=== PATIENT | male | born 1985 | race Caucasian/White ===

== ENCOUNTER 2019-06-23 09:51 | Day surgery (SDC) | payer OTHER ==
[2019-06-20 11:37] LABS: Basophils # (auto) 0 uL; Basophils % (auto) 0.3 % (0.0-2.0); Eosinophils # (auto) 0.1 uL; Eosinophils % (auto) 1.9 % (0.0-7.0); Hematocrit 45.8 % (41.0-53.0); Hemoglobin 15.4 g/dL (13.5-17.5); Lymphocytes # (auto) 1.5 uL; Mean Corpuscular Hemoglobin 29.6 pg (28.0-32.0); Mean Corpuscular Hgb Conc. 33.6 g/dL (32.0-36.0); Mean Corpuscular Volume 88.1 fL (80.0-100.0); Monocytes # (auto) 0.4 uL; Monocytes % (auto) 6.3 % (0.0-12.0); Neutrophils # (auto) 4.3 uL; Neutrophils % (auto) 67.5 % (37.0-80.0); Platelet Count (auto) 288 10^3/uL (140-450); Red Cell Distribution Width 13.3 % (11.8-14.3); White Blood Cell 6.4 10^3/uL (4.4-10.8)
[2019-06-20 11:58] LABS: INR 0.95 (0.9-1.15); Partial Thromboplastin Time 28.4 sec (23.64-32.05)
[~2019-06-23] VITALS: Ht 175.3 cm; Wt 83.9 kg
[~2019-06-23 09:51] MED LIST: ESOM40CA39 PO; OMEP20TA PO
[2019-06-23] MEDS ORDERED: LIDOCAINE VISCOUS 2% 15ML UD ONE (10:47)
[2019-06-23] MEDS ORDERED: SODIUM CHLORIDE LOCK 10 ML ONE (10:47)
[2019-06-23] MEDS ORDERED: diphenhdrAMINE HCL 50 MG/1 ML VL ONE (10:48)
[2019-06-23] MEDS: fentaNYL CITRATE 100 MCG/2 ML VL ONE ×2 (11:06→11:09)
[2019-06-23] MEDS: MIDAZOLAM HCL 5 MG/ML-1ML VIAL ONE ×2 (11:06→11:09)
[2019-06-23 11:49] VITALS: BP 106/73
== END 2019-06-23 11:15 | disposition home or self-care (01) ==
LOC: SUR 09:51
PROVIDERS: ATTEND Internal Medicine Gastroenterology
DX: K29.70 Gastritis, unspecified, without bleeding (principal); K22.10 Ulcer of esophagus without bleeding; Z79.899 Other long term (current) drug therapy; Z88.5 Allergy status to narcotic agent; Z98.890 Other specified postprocedural states
CPT/HCPCS: 36415; 43239; 85025; 85610; 85730; J1200; J2250; J3010; J7030